=== PATIENT | female | born 1940 ===

== ENCOUNTER 2020-09-04 08:21 | Day surgery (SDC) | payer OTHER, SELFPAY ==
[~2020-09-04] VITALS: Ht 167.6 cm; Wt 78.9 kg
[~2020-09-04 08:21] MED LIST: ASCO500 PO; ASPI81CH PO; CALCIUM PO; CENTRUM SILVER1 EAC2 PO; DICL75ER PO; HAIR, SKIN AND1 EAC3 PO; Lisinopril-Hct1 EAC4 PO; METO25ER PO; OMEP20ER PO; VITAMIN D310 MC4 PO
--- NOTE | 2020-09-04 14:11 | NUR ---
pt arrived from [facility] at approx 1215. pt [id number]. denies pain and reports numbness up to her umbilicus. denies nausea. tolerating po well. educated pt on room and call light, used incentive spirometry. educated on importance of ambulation once tolerable.
[2020-09-05 04:57] LABS: BASOPHILS ABSOLUTE AUTO 0.03 K/mm3 (0.00-0.23); BASOPHILS PERCENT AUTO 0 % (0-2); EOSINOPHILS ABSOLUTE AUTO 0.21 K/mm3 (0.00-0.68); EOSINOPHILS PERCENT AUTO 3 % (0-6); Hematocrit 31.7 % (33.0-51.0); Hemoglobin 9.9 g/dL (11.5-16.0); IMMATURE GRAN ABSOLUTE AUTO 0.03 K/mm3 (0.00-0.10); IMMATURE GRAN PERCENT AUTO 0 % (0-1); LYMPHOCYTES ABSOLUTE AUTO 0.88 K/mm3 (0.84-5.20); LYMPHOCYTES PERCENT AUTO 12 % (21-46); MONOCYTES ABSOLUTE AUTO 0.55 K/mm3 (0.16-1.47); MONOCYTES PERCENT AUTO 7 % (4-13); Mean Corpuscular HGB 27.3 pg (26.0-34.0); Mean Corpuscular HGB Conc 31.2 g/dL (31.5-36.5); Mean Corpuscular Volume 87 fL (80-100); NEUTROPHILS ABSOLUTE AUTO 5.84 K/mm3 (1.96-9.15); NEUTROPHILS PERCENT AUTO 77 % (41-73); Platelet Count 163 K/mm3 (150-400); RDW Coefficient Variation 14.3 % (11.7-14.2); RDW Standard Deviation 46.2 fL (35.1-46.3); Red Blood Cell Count 3.63 M/mm3 (3.80-5.20); White Blood Cell Count 7.54 K/mm3 (4.00-11.30)
[2020-09-05 05:24] LABS: Anion Gap 7 mmol/L (6-16); Blood Urea Nitrogen 18 mg/dL (8-24); Bun/Creatinine Ratio 19.6 (12.0-20.0); CO2, Blood 27 mmol/L (21-32); Calcium, Blood 8.6 mg/dL (8.5-10.1); Chloride, Blood 106 mmol/L (98-108); Creatinine, Blood 0.92 mg/dL (0.40-1.00); Glomerular Filtration Rate >60 (60-); Glucose, Blood 99 mg/dL (70-99); Magnesium, Blood 1.7 mg/dL (1.6-2.4); Potassium, Blood 3.2 mmol/L (3.5-5.5); Sodium, Blood 140 mmol/L (136-145)
--- NOTE | 2020-09-05 06:40 | NUR ---
SHIFT SUMMARY: DEVEN IS A&OX4. VSS, NO ACUTE CHANGES THIS SHIFT. SHE IS TOLERATING PO INTAKE WELL, IV SALINE LOCKED, USES THE CALL LIGHT APPROPRIATELY. SHE IS A ONE-PERSON STANDBY ASSIST TO THE BATHROOM AND IN THE HALLWAY WITH THE GAIT BELT AND FWWRaquel BURLESONELL TO R KNEE C/D&I. SHE IS LYING IN BED WITH HER CALL LIGHT IN REACH. WILL REPORT TO DAY SHIFT RN.
[2020-09-05] MEDS ORDERED: OXAYDO5 MG PO (08:12)
[2020-09-05] MEDS ORDERED: ACET500 PO (08:29)
--- NOTE | 2020-09-05 10:00 | NUR ---
DISCHARGE PT DISCHARGED VIA WHEELCHAIR INTO SONS CAR. DISCHARGE INFO GONE OVER WITH PT AND SON. DECLINED ANY FURTHER QUESTIONS AT THIS TIME. PRESCRIPTION SENT WITH PT. EXTRA DRESSINGS PROVIDED. ALL BELONGINGS WITH PATIENT. PT AMBULATING WELL REPORTS PAIN TOLERABLE AT THIS TIME.
--- NOTE | 2020-09-07 09:40 | NUR ---
09/07/20 0940 Veronica Max VERIFICATIONS: EDIT CHART.
== END 2020-09-05 14:05 | disposition home or self-care (01) ==
LOC: ORSCMMR 08:21 → ORD 10:45 → ORSCMMR 10:45 → SURS 12:16 → ORD 14:00 → SURS 09-05 09:59 → ORSCMMR 09-05 09:59
PROVIDERS: Orthopaedic Surgery
PROC: 8E0Y0CZ Robotic Assisted Procedure of Lower Extremity, Open Approach (ICD-10-PCS; principal; 2020-09-04 10:45)
PROC: 0SRC0JA Replacement of Right Knee Joint with Synthetic Substitute, Uncemented, Open Approach (ICD-10-PCS; principal; 2020-09-04 10:45)
DX: M17.11 Unilateral primary osteoarthritis, right knee (principal); I10 Essential (primary) hypertension; K21.9 Gastro-esophageal reflux disease without esophagitis; Z79.899 Other long term (current) drug therapy; Z87.891 Personal history of nicotine dependence; Z79.82 Long term (current) use of aspirin
CPT/HCPCS: 27447; S2900; 36415; 73560-RT; 80048; 83735; 85025; 88300; 97110; 97116; 97162; 97530; A9270; C1776; J0171; J0461; J0690; J0735; J1885; J2370; J2704; J2795; J3010; J7120

== ENCOUNTER 2021-05-30 10:36 | Day surgery (SDC) | payer OTHER ==
[~2021-05-30] VITALS: Ht 167.6 cm; Wt 77.7 kg
[~2021-05-30 10:36] MED LIST changes: +ACET500 PO; +OXAYDO5 MG PO
--- NOTE | 2021-05-30 18:12 | NUR ---
SHIFT SUMMARY PATIENT ADMITTED S/P LTKA WITH SPINAL BLOCK. PATIENT NOW ABLE TO WIGGLE TOES AND HAS SENSATION. FEET WARM TO TOUCH, LEFT PEDAL PULSE BY DOPPLER. PATIENT REPORTS NO PAIN. TOLERATING REGULAR DIET. VSS
[2021-05-31 04:37] LABS: BASOPHILS ABSOLUTE AUTO 0.01 K/mm3 (0.00-0.23); BASOPHILS PERCENT AUTO 0 % (0-2); EOSINOPHILS PERCENT AUTO 0 % (0-6); Hematocrit 34.1 % (33.0-51.0); Hemoglobin 10.9 g/dL (11.5-16.0); IMMATURE GRAN ABSOLUTE AUTO 0.03 K/mm3 (0.00-0.10); IMMATURE GRAN PERCENT AUTO 0 % (0-1); LYMPHOCYTES ABSOLUTE AUTO 0.91 K/mm3 (0.84-5.20); LYMPHOCYTES PERCENT AUTO 9 % (21-46); MONOCYTES PERCENT AUTO 4 % (4-13); Mean Corpuscular HGB 28.2 pg (26.0-34.0); Mean Corpuscular Volume 88 fL (80-100); Mean Platelet Volume 9.7 fL (9.1-12.4); NEUTROPHILS ABSOLUTE AUTO 9.33 K/mm3 (1.96-9.15); NEUTROPHILS PERCENT AUTO 87 % (41-73); Platelet Count 174 K/mm3 (150-400); RDW Coefficient Variation 13.2 % (11.7-14.2); RDW Standard Deviation 42.5 fL (35.1-46.3); Red Blood Cell Count 3.87 M/mm3 (3.80-5.20); White Blood Cell Count 10.68 K/mm3 (4.00-11.30)
--- NOTE | 2021-05-31 05:08 | NUR ---
A/O X3. ABLE TO MAKE HER NEEDS KNOWN. NO EVENTS OVER NIGHT. S/P LT TKA. SERGIO WRAP TO LT KNEE IS CDI. POLAR PACK IN PLACE TO LT KNEE. HAS FULL/COMPLETE SENSATION TO LLE. DENIES PAIN. VOIDING WELL. 1PA W/FWW W/AMBULATION IN ROOM. DENIES ANY N/V. BT'S POS. TOLERATING REG DIET WELL.
[2021-05-31 05:15] LABS: Anion Gap 8 mmol/L (6-16); Blood Urea Nitrogen 14 mg/dL (8-24); Bun/Creatinine Ratio 16.9 (12.0-20.0); CO2, Blood 26 mmol/L (21-32); Calcium, Blood 8.7 mg/dL (8.5-10.1); Chloride, Blood 100 mmol/L (98-108); Creatinine, Blood 0.83 mg/dL (0.40-1.00); Glomerular Filtration Rate >60 (60-); Glucose, Blood 157 mg/dL (70-99); Magnesium, Blood 1.5 mg/dL (1.6-2.4); Potassium, Blood 3.8 mmol/L (3.5-5.5); Sodium, Blood 134 mmol/L (136-145)
[2021-05-31] MEDS ORDERED: ASPI81CH PO (11:33)
[2021-05-31] MEDS ORDERED: OXAYDO5 M1 PO (11:34)
[2021-05-31] MEDS ORDERED: PROM12.5S PO (11:35)
--- NOTE | 2021-05-31 12:00 | NUR ---
BLOOD PRESSURE MEDICATION;PT DECLINED METOPROLOL PRIOR TO DISCHARGE. PT EDUCATED TO TAKE MEDICATION WHEN SHE GOT HOME. PT HEART RATE IMPROVED TO 60 FROM 56 PRIOR TO DISCHARGE.
--- NOTE | 2021-05-31 16:18 | NUR ---
DISCHARGE PT PROVIDED WITH WRITTEN AND VERBAL DISCHARGE INSTRUCTIONS BY EZRA PERES RN. DRESSINGS PROVIDED. PT ESCORTED OUT IN W/C BY ROSA STUDENT NURSE.
== END 2021-05-31 12:39 | disposition home or self-care (01) ==
LOC: ORSCMMR 10:36 → ORD 14:00 → ORSCMMR 14:00 → SURS 16:26 → ORSCMMR 05-31 12:39
PROVIDERS: Orthopaedic Surgery
PROC: 0SRD0J9 Replacement of Left Knee Joint with Synthetic Substitute, Cemented, Open Approach (ICD-10-PCS; principal; 2021-05-30 14:00)
PROC: 8E0YXBZ Computer Assisted Procedure of Lower Extremity (ICD-10-PCS; principal; 2021-05-30 14:00)
DX: M17.12 Unilateral primary osteoarthritis, left knee (principal); I10 Essential (primary) hypertension; K21.9 Gastro-esophageal reflux disease without esophagitis; Z79.899 Other long term (current) drug therapy
CPT/HCPCS: 36415; 73560-LT; 80048; 83735; 85025; 97110; 97116; 97162; A9270; C1713; C1776; J0171; J0690; J0735; J1100; J1885; J2250; J2405; J2704; J2795; J3010; J3370; J3475; J7120